=== PATIENT | male | born 1985 | race Caucasian/White ===

== ENCOUNTER 2017-05-26 13:36 | Emergency (ER) | payer BC ==
[~2017-05-26] VITALS: Ht 182.9 cm; Wt 95.3 kg
[~2017-05-26 13:36] MED LIST: FLEXERIL10 MG PO; MOTRIN600 MG PO; NOHOMEMEDS; ULTRAM50 MG PO
[2017-05-26 14:33] LABS: HEMATOCRIT 45.8 % (38.0-50.0); HEMOGLOBIN 15.8 G/DL (12.5-16.6); MCH 30.3 PG (29.0-34.0); MCHC 34.5 G/DL (30.0-36.0); MCV 87.7 FL (86-99); PLATELET COUNT 216 K/uL (156-360); RBC DIS.WIDTH-CV 12.7 % (11.8-14.6); RBC DIS.WIDTH-SD 41.1 % (39-53); RED BLOOD COUNT 5.22 M/uL (4.00-5.50); WHITE BLOOD COUNT 6.8 K/uL (4.1-10.2)
[2017-05-26 14:47] LABS: CHLORIDE 98 mEq/L (99-109); SODIUM 136 mEq/L (136-147)
[2017-05-26 14:49] LABS: GLUCOSE 103 mg/dL (70-99)
[2017-05-26 14:53] LABS: CREATININE 1.1 mg/dL (0.6-1.3); GFR ESTIMATE (CALCULATED) > 59 mL/min/ (58.99-99999)
[2017-05-26 14:54] LABS: UREA NITROGEN (BUN) 14 mg/dL (9-23)
[2017-05-26] MEDS ORDERED: VALTREX1000 MG PO (17:34)
[2017-05-26] MEDS ORDERED: PERCOCET 5/31 TABLET PO (17:34)
[2017-05-26] MEDS ORDERED: NEOMYCIN-POLYMY10 ML BOTH EARS (17:34)
[2017-05-26] MEDS ORDERED: PREDNISONE20 MG PO (17:34)
[2017-05-26 18:01] VITALS: BP 137/87
== END 2017-05-26 18:06 | disposition home or self-care (01) ==
LOC: EME 13:36
DX: G51.0 Bell's palsy (principal); H60.92 Unspecified otitis externa, left ear
CPT/HCPCS: 70450; 71020; 80048; 85027; 93005; 99281; 99284; J2270